=== PATIENT | female | born 1980 | race Caucasian/White ===

== ENCOUNTER 2016-12-17 14:17 | Inpatient (IN) | payer MEDICAID ==
[~2016-12-17] VITALS: Ht 157.5 cm; Wt 65.3 kg
[~2016-12-17 14:17] MED LIST changes: -IBUP-232 PO; -OXYC1TAB63 PO
--- NOTE | 2017-02-27 17:17 | MH ---
cc: ABDIAZIZ SETH DATE OF ADMISSION: 03/01/2017 HISTORY AND PHYSICAL The patient is a 36-year-old female 6, para 3-0-2-3, history of three previous sections for elective repeat section. The patient is 39 weeks gestation. 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 The patient has been recovered for more than a year. The patient's recent hepatitis C titer RNA measured over three million International Units, the core antibody was greater than 11. The patient was concerned in regards to ability to breast feed . The patient has elected for repeat section at term. Her due date is 03/07/2017. The patient's course has been unremarkable. Group B strep status is negative. Her blood type is O negative. The patient received RhoGAM appropriately. The patient also has a history of herpes simplex type 2 and has been on Valtrex since 36 weeks. ALLERGIES PENICILLIN AND LATEX ALLERGY. PAST MEDICAL HISTORY 1. History of bipolar disorder. 2. Hepatitis C. 3. Herpes. 4. Three previous sections uncomplicated and a spontaneous termination. No other surgical history documented. FAMILY HISTORY Noncontributory. SOCIAL HISTORY The patient is about a pack a day smoker. CURRENT MEDICATIONS 1. Valtrex 500 mg daily. 2. vitamins. PHYSICAL EXAMINATION GENERAL: The patient is a well-appearing, well-nourished female in no acute distress. VITAL SIGNS: Vital signs are stable. Blood pressure is 110/60. She weighs 142 pounds. HEAD, EYES, EARS, NOSE AND THROAT: Shows no adenopathy or thyromegaly. LUNGS: Lungs are clear in all rouse. CARDIAC: Regular, rate and rhythm. ABDOMEN: Abdomen is gravid, full-term. Fundus measures 40 weeks. PELVIC: Pelvic was deferred. EXTREMITIES: Extremities are symmetrical. Full range of motion. There is no cyanosis, clubbing or edema. NEUROLOGIC: Exam is grossly intact, nonfocal. ASSESSMENT Patient at 39 weeks intrauterine gestation, three previous sections, is scheduled for a repeat section with tubal ligation. History of recovering drug abuse, hepatitis C, herpes simplex type 2, GBS negative, smoker. MD MARGARITA Bowen/JASPER /4:35 PM /4:55 PM
[2017-03-01] VITALS (9 sets, daily range): BP systolic 115–131; BP diastolic 69–87; PULSE 53–84; RESP 18–20; TEMP 97.5–98.6; O2SAT 96–99
[2017-03-01] MEDS ORDERED: LACTATED RINGER'S 1000 ML IV ONE (06:30)
[2017-03-01] MEDS ORDERED: CITRIC ACID-SODIUM CITRATE LIQ 30 ML UDC PO SCH (06:30)
[2017-03-01] MEDS ORDERED: LACTATED RINGER'S 1000 ML IV SCH (06:30)
[2017-03-01] MEDS ORDERED: ceFAZolin 1,000 MG/NS 100 ML IV SCH ×2 (06:30)
[2017-03-01 06:43] LABS: AUTOMATED NEUTROPHIL # 8.3 TH/MM3 (1.8-7.7); BASOPHIL % 0.4 % (0.0-2.0); EOSINOPHIL # 0.1 TH/MM3 (0-0.4); EOSINOPHIL % 0.9 % (0.0-4.0); HEMATOCRIT 34.9 % (35.0-46.0); HEMO FLAGS DIFF FINAL; LYMPH % 17.1 % (9.0-44.0); LYMPHOCYTE # 1.9 TH/MM3 (1.0-4.8); MEAN CELL VOLUME 91.8 FL (80.0-100.0); MEAN CORPUSCULAR HGB CONC 35.9 % (32.0-36.0); MONO % 7.3 % (0.0-8.0); NEUT % 74.3 % (16.0-70.0); PLATELET COUNT 164 TH/MM3 (150-450); RED CELL DISTRIBUTION WIDTH 12.7 % (11.6-17.2); WHITE BLOOD COUNT 11.2 TH/MM3 (4.0-11.0)
[2017-03-01 06:52] LABS: BLOOD, URINE NEG (NEG); GLUCOSE,URINE NEG (NEG); KETONE, URINE NEG (NEG); NITRITE,URINE NEG (NEG); SQUAMOUS EPITHELIAL CELL URINE <1 /hpf (0-5); URINE COLOR LIGHT-YELLOW (YELLW/STRAW)
[2017-03-01 06:58] LABS: COMMENT (UR) CULT NOT INDICATED; CULTURE IF INDICATED CULT NOT INDICATED
[2017-03-01 07:08] LABS: AMPHETAMINE, URINE NEG (NEG); BARBITURATES, URINE NEG (NEG); COCAINE, URINE NEG (NEG)
[2017-03-01] MEDS ORDERED: OXYTOCIN 10 UNIT/ML AMP ONE (07:15)
[2017-03-01] MEDS ORDERED: ONDANSETRON HCL 4 MG/2 ML VIAL ONE (07:15)
[2017-03-01] MEDS ORDERED: MORPHINE SULFATE PF 5 MG/10 ML VIAL ONE (07:15)
[2017-03-01] MEDS ORDERED: ONDANSETRON HCL 4 MG/2 ML VIAL IV PUSH PRN (07:30)
[2017-03-01] MEDS ORDERED: SODIUM CHLORIDE 0.9% FLUSH 10 ML FLUSH IV FLUSH PRN (07:30)
[2017-03-01] MEDS ORDERED: ACETAMINOPHEN 1000 MG/100 ML VIAL IV ONE ×2 (07:30→09:02)
[2017-03-01] MEDS ORDERED: KETOROLAC TROMETHAMINE 60 MG/2 ML (IM) VIAL IM PRN (07:30)
[2017-03-01] MEDS ORDERED: OXYTOCIN 30 UNITS-500ML PREMIX 500 ML IV ONE (07:30)
[2017-03-01] MEDS ORDERED: CLINDAMYCIN INJ 600 MG in SODIUM CHLORIDE 0.9% INJ 100 ML IV SCH (08:00)
--- NOTE | 2017-03-01 08:23 | PD.OB.DELI ---
Procedure Note Section Procedure Performed by Anup Dietz Procedure: Repeat Low Transverse Sec (With BTL) Indication for delivery: Desired elective repeat Informed consent obtained: For anesthesia Confirmed correct: Patient, Procedure, Site, Time-out taken Anesthesia: Spinal Medication prior to procedure: As documented in eMAR Monitoring during procedure: Blood pressure monitoring, monitoring manager, doppler, Pulse oximetry Urinary catheter: Inserted using sterile technique, To dependent drainage Sterile preparation: Duraprep, In usual fashion Position: Supine with wedge to right side, Supine with safety belt applied Operative Features Skin Incision: Pfannenstiel Uterine Incision: Low transverse w/knife / scissors Membranes Ruptured: Artificially Presentation: Occiput anterior Delivery of infant: Uneventful Infant: Male One Minute : 9 Five Minute : 9 Weight: 7#1oz Status of : Viable, Cord blood Placenta delivered: Intact Medications: Antibiotics, Oxytocin Estimated blood loss: 6500cc Procedure tolerated: Well Maternal Condition: Stable Condition: Stable Anup Dietz MD Mar 01, 2017 08:23
[2017-03-01] MEDS ORDERED: SODIUM CHLORIDE 0.9% FLUSH 10 ML FLUSH IV FLUSH SCH (09:00)
[2017-03-01] MEDS ORDERED: OXYTOCIN 30 UNITS-500ML PREMIX 500 ML ONE (09:03)
[2017-03-01] MEDS ORDERED: ePHEDrine/NS 25 MG/5 ML SYR IV ONE (09:22)
[2017-03-01] MEDS ORDERED: KETOROLAC TROMETHAMINE 30 MG/ML (IVP) VIAL ONE (09:26)
[2017-03-01] MEDS ORDERED: EPIDURAL-DIPHENHYDRAMINE HCL 50 MG/ML VIAL IV PUSH PRN (10:30)
[2017-03-01] MEDS ORDERED: EPIDURAL-NO SYSTEMIC NARCOTICS PRN (10:30)
[2017-03-01] MEDS ORDERED: EPIDURAL-DIPHENHYDRAMINE HCL 50 MG CAP PO PRN (10:30)
[2017-03-01] MEDS ORDERED: EPIDURAL-DO NOT ADMINISTER ANTICOAGULANTS PRN (10:30)
[2017-03-01] MEDS ORDERED: EPIDURAL-NALOXONE HCL 0.4 MG/ML AMP IV PRN (10:30)
[2017-03-01] MEDS ORDERED: LACTATED RINGER'S 1000 ML INJ 1,000 ML IV SCH (12:21)
[2017-03-01] MEDS: CLINDAMYCIN INJ 600 MG in SODIUM CHLORIDE 0.9% INJ 100 ML IV SCH ×2 (13:11→18:19)
[2017-03-01] MEDS: oxyCODONE/ACETAMINOPHEN 5 MG/325 MG TAB PO PRN ×2 (15:49→20:08)
[2017-03-01] MEDS: DOCUSATE SODIUM 50 MG/SENNA 8.6 MG TAB PO PRN (15:49)
[2017-03-01] MEDS: IBUPROFEN 600 MG TAB PO PRN ×2 (15:49→22:15)
[2017-03-01] MEDS ORDERED: OXYTOCIN 30 UNITS-500ML PREMIX 500 ML IV PRN (17:30)
[2017-03-01] MEDS: SIMETHICONE 80 MG CHEWABLE TAB PO PRN (22:18)
[2017-03-02] MEDS: oxyCODONE/ACETAMINOPHEN 5 MG/325 MG TAB PO PRN ×5 (02:11→20:18)
[2017-03-02 04:00] VITALS: BP 116/68; PULSE 108; PULSE 77; RESP 18; TEMP 97.7
[2017-03-02] MEDS: DOCUSATE SODIUM 50 MG/SENNA 8.6 MG TAB PO PRN ×2 (06:06→20:18)
[2017-03-02] MEDS: SIMETHICONE 80 MG CHEWABLE TAB PO PRN ×2 (06:06→15:50)
[2017-03-02] MEDS: IBUPROFEN 600 MG TAB PO PRN ×3 (06:06→20:18)
[2017-03-02 06:35] LABS: BASOPHIL % 0.2 % (0.0-2.0); EOSINOPHIL # 0.1 TH/MM3 (0-0.4); EOSINOPHIL % 0.8 % (0.0-4.0); HEMATOCRIT 29.9 % (35.0-46.0); HEMO FLAGS DIFF FINAL; LYMPH % 17.8 % (9.0-44.0); LYMPHOCYTE # 2.2 TH/MM3 (1.0-4.8); MEAN CELL VOLUME 93.3 FL (80.0-100.0); MEAN CORPUSCULAR HEMOGLOBIN 31.4 PG (27.0-34.0); MEAN CORPUSCULAR HGB CONC 33.6 % (32.0-36.0); MONO % 8.4 % (0.0-8.0); NEUT % 72.8 % (16.0-70.0); PLATELET COUNT 135 TH/MM3 (150-450); RED CELL DISTRIBUTION WIDTH 12.4 % (11.6-17.2); WHITE BLOOD COUNT 12.4 TH/MM3 (4.0-11.0)
[2017-03-02 09:25] VITALS: BP 129/69; PULSE 70; RESP 16; TEMP 98.3
--- NOTE | 2017-03-02 10:56 | HHI.OB ---
Subjective Post Operative Day: 1 Remarks Doing well, Baby is well, not because of the hepatitis C bleeding is good, pain is well controlled. Objective Vitals/I&O Vital Signs Date Time Temp Pulse Resp B/P Pulse Ox O2 Delivery O2 Flow Rate FiO2 03/02/17 09:25 98.3 03/02/17 09:25 70 16 129/69 03/02/17 04:00 116/68 03/02/17 04:00 97.7 108 18 03/02/17 04:00 77 03/01/17 23:58 98.3 20 03/01/17 23:58 61 117/69 03/01/17 20:00 75 115/69 03/01/17 20:00 98.6 18 Result Diagram: 03/02/17 0554 Objective Remarks GENERAL: Well-nourished, well-developed patient. CARDIOVASCULAR: Regular rate and rhythm without murmurs, gallops, or rubs. RESPIRATORY: Breath sounds equal bilaterally. No accessory muscle use. ABDOMEN/GI: Abdomen soft, non-tender, bowel sounds present. Incision: Clean, dry and intact. Fundus: Firm, non-tender at umbilicus. GENITOURINARY: Light to moderate bleeding. EXTREMITIES: No cyanosis or edema, non-tender, without signs of DVT. Medications and IVs Current Medications Medications (Trade) Dose Ordered Sig/Gomez Route Start Time Stop Time Status Last Admin (Lr 1000 ml Inj) 1,000 ml @ 150 mls/hr Q6H40M IV 03/01/17 06:30 03/01/17 06:30 (NS Flush) 2 ml BID IV FLUSH 03/01/17 09:00 (NS Flush) 2 ml UNSCH PRN IV FLUSH 03/01/17 07:30 (Mylicon Chew) 80 mg QID PRN PO 03/01/17 07:30 03/02/17 06:06 (Motrin) 600 mg Q6H PRN PO 03/01/17 07:30 03/02/17 06:06 (Percocet 5-325 Mg) 1 tab Q4H PRN PO 03/01/17 07:30 03/02/17 06:49 (Percocet 5-325 Mg) 2 tab Q4H PRN PO 03/01/17 07:30 (Aleida-Colace) 2 tab Q12H PRN PO 03/01/17 07:30 03/02/17 06:06 (M-M-R Ii Inj) 0.5 ml ONCE ONCE SQ 03/02/17 16:00 03/02/17 16:01 (Boostrix Inj) 0.5 ml ONCE ONCE IM 03/02/17 16:00 03/02/17 16:01 (Zofran Inj) 4 mg Q6H PRN IV PUSH 03/01/17 07:30 Assessment/Plan Assessment and Plan POD#1 Doing well Anemia will start fe after percocet Hep C will speak with peds regarding Hep c and . Kayli Dash MD Mar 02, 2017 10:56
[2017-03-02] MEDS ORDERED: IBUP-232 PO (10:58)
[2017-03-02] MEDS ORDERED: OXYC1TAB63 PO (10:58)
--- NOTE | 2017-03-02 10:58 | HHI.DCPOC ---
Discharge Care Plan Diagnosis: (1) Previous section complicating , antepartum condition or complication Report Symptoms to Your Doctor -Temperate above 100.5 degrees -Redness, of incision or excessive or foul smelling drainage -Unusual pain or calf pain -Increased vaginal bleeding -Painful or difficulty urinating -Feelings of extreme sadness or anxiety after 2 weeks Goals to Promote Your Health * To prevent worsening of your condition and complications * To maintain your health at the optimal level Directions to Meet Your Goals Take your medications as prescribed Follow your dietary instruction Follow activity as directed Ensure plenty of rest for recovery Drink fluids for hydration Keep your appointments as scheduled Take your immunizations and boosters as scheduled If your symptoms worsen call your PCP, if no PCP go to Urgent Care Center or Emergency Room Smoking is Dangerous to Your Health. Avoid second hand smoke Call the 24-hour crisis hotline for domestic abuse at Kayli Dash MD Mar 02, 2017 10:58
[2017-03-02] MEDS ORDERED: DIPHTH/TETANUS/ACEL PERTUSSIS (BOOSTER) 0.5 ML VIAL/PFS IM ONE (16:00)
[2017-03-02] MEDS ORDERED: MEASLES, MUMPS, RUBELLA VACCINE 0.5 ML VIAL SQ ONE (16:00)
[2017-03-03] MEDS: oxyCODONE/ACETAMINOPHEN 5 MG/325 MG TAB PO PRN ×4 (00:52→14:27)
[2017-03-03] MEDS: IBUPROFEN 600 MG TAB PO PRN ×3 (03:38→17:51)
[2017-03-03 07:57] VITALS: BP 118/74; PULSE 60; RESP 18; TEMP 98
[2017-03-03] MEDS: SIMETHICONE 80 MG CHEWABLE TAB PO PRN (09:34)
[2017-03-03] MEDS: DOCUSATE SODIUM 50 MG/SENNA 8.6 MG TAB PO PRN (09:35)
--- NOTE | 2017-03-03 12:02 | HHI.OB ---
Subjective Post Operative Day: 2 Remarks Doing well, Baby is doing well and Pain is well controlled Objective Vitals/I&O Vital Signs Date Time Temp Pulse Resp B/P Pulse Ox O2 Delivery O2 Flow Rate FiO2 03/03/17 10:36 18 03/03/17 10:36 18 03/03/17 07:57 98.0 60 18 118/74 Result Diagram: 03/02/17 0554 Objective Remarks GENERAL: Well-nourished, well-developed patient. CARDIOVASCULAR: Regular rate and rhythm without murmurs, gallops, or rubs. RESPIRATORY: Breath sounds equal bilaterally. No accessory muscle use. ABDOMEN/GI: Abdomen soft, non-tender, bowel sounds present. Incision: Clean, dry and intact. Fundus: Firm, non-tender at umbilicus. GENITOURINARY: Light to moderate bleeding. EXTREMITIES: No cyanosis or edema, non-tender, without signs of DVT. Medications and IVs Current Medications Medications (Trade) Dose Ordered Sig/Gomez Route Start Time Stop Time Status Last Admin (Lr 1000 ml Inj) 1,000 ml @ 150 mls/hr Q6H40M IV 03/01/17 06:30 03/01/17 06:30 (NS Flush) 2 ml BID IV FLUSH 03/01/17 09:00 (NS Flush) 2 ml UNSCH PRN IV FLUSH 03/01/17 07:30 (Mylicon Chew) 80 mg QID PRN PO 03/01/17 07:30 03/03/17 09:34 (Motrin) 600 mg Q6H PRN PO 03/01/17 07:30 03/03/17 09:35 (Percocet 5-325 Mg) 1 tab Q4H PRN PO 03/01/17 07:30 03/02/17 06:49 (Percocet 5-325 Mg) 2 tab Q4H PRN PO 03/01/17 07:30 03/03/17 09:34 (Aleida-Colace) 2 tab Q12H PRN PO 03/01/17 07:30 03/03/17 09:35 (Zofran Inj) 4 mg Q6H PRN IV PUSH 03/01/17 07:30 Assessment/Plan Assessment and Plan POD#2 Doing well Anemia will start fe after percocet Hep C Will d/c home tonite if stable Vagovic,R. Anibal MD Mar 03, 2017 12:02
[2017-03-03 15:45] VITALS: RESP 18
--- NOTE | 2017-03-04 08:04 | MP ---
cc: ABDIAZIZ SETH M.D. DATE OF SURGERY: 03/01/2017 DATE OF : 1980 PREOPERATIVE DIAGNOSIS 1. Term intrauterine . 2. Previous section x3, for elective repeat section and sterilization. 3. History of hepatitis C. 4. History of recovered substance abuse. 5. Smoker. 6. Advanced maternal age. PROCEDURE 1. Repeat low transverse section. 2. Delivery of viable male infant. 3. Bilateral tubal ligation by modified [place] technique. POSTOPERATIVE DIAGNOSIS 1. Term intrauterine . 2. Previous section x3, for elective repeat section and sterilization. 3. History of hepatitis C. 4. History of recovered substance abuse. 5. Smoker. 6. Advanced maternal age. ANESTHESIA Spinal. ESTIMATED BLOOD LOSS 650 cc. DRAINS Flynn to gravity. OPERATIVE FINDINGS Male infant weighing 7 pounds 1 ounce with Apgars of 9 at one minute and 9 at five. Clear fluid. Three-vessel cord. DETAILS OF PROCEDURE The patient was taken to the operating room, consented for repeat section and tubal ligation at term. Underwent spinal anesthetic without complication. She received clindamycin as an antibiotic secondary to a penicillin allergy. She was prepped and draped. Flynn was inserted by sterile technique. She had sequentials placed on her lower extremities. She had excellent pain control. A timeout was conducted and agreed by all present in the room. Once the patient was adequately prepped and draped a Pfannenstiel incision was used going through the previous scar through the subcutaneous layer to the fascia. A moderate amount of scar tissue was identified but nothing significant. The peritoneum was identified easily after the rectus muscle in the midline. A bladder blade was placed over the pubic symphysis. A transverse incision was made in the lower uterine segment with clear fluid. The incision was extended and the was delivered by simple manipulation and fundal pressure. No nuchal cord. A three-vessel cord identified. Infant had Apgars of 9 at one minute and 9 at five. The infant was taken to the isolette after the cord was doubly clamped and cut. Cord blood was obtained for sampling. The placenta was removed intact with trailing membranes. Exploration of the uterus was clear. The uterus was closed with a double layer, first as a running locking suture of 0 Monocryl followed by a second imbricating suture of 0 Monocryl. The fallopian tubes were identified. The mesentery was opened using the Bovie and then a 2-0 plain suture was placed proximally and distally on each fallopian tube to excise the mid isthmic portion of the tube, approximately 4 cm in each tube. Hemostasis was confirmed. The uterus was then returned to its normal anatomic position in the pelvis and examined. There was no active bleeding. The pelvis was irrigated with normal saline. No active bleeding or hematoma was identified after clearing the fluid. Full count was made and correct. The peritoneum was then closed with running suture of 2-0 Monocryl. The muscle bellies were re-approximated with interrupted mattress suture of 2-0 Monocryl and the fascia was closed with 0 Vicryl in a simple running fashion. The subcutaneous layer was irrigated and any small bleeders were cauterized. The space was re-approximated with a running suture of 2-0 Monocryl. [place] were used to close the skin. The final count was correct. The patient was stable. The was doing well in the recovery room with the nursery staff. MD MARGARITA Bowen/MAGNUS /8:29 AM /7:51 AM
[2017-03-06 10:49] LABS: BATH SALTS (MDPV) UR NEG (NEG); ECSTASY (MDMA) UR NEG (NEG); GABAPENTIN UR NEG (NEG); HEROIN (6-ACETYLMORPHINE) UR NEG (NEG); HYDROMORPHONE U NEG (NEG); K2 SPICE UR NEG (NEG); OBMETHADONE UR NEG (NEG); OXYCODONE (PERCODAN) NEG (NEG); PHENCYCLIDINE URINE NEG (NEG)
[2017-03-06 17:54] LABS: HEP B DNA R1 LESS THAN 20 IU/mL (()); HEP B DNA R2 LESS THAN 1.30 (())
== END 2017-03-03 18:19 | disposition home or self-care (01) | DRG 765 ==
LOC: H2EB 03-01 05:28 → H1EA 03-01 09:42
PROVIDERS: ADMIT Obstetrics & Gynecology; ATTEND Obstetrics & Gynecology
PROC: 10D00Z1 Extraction of Products of Conception, Low, Open Approach (ICD-10-PCS; principal; 2017-03-01)
PROC: 0UB70ZZ Excision of Bilateral Fallopian Tubes, Open Approach (ICD-10-PCS; 2017-03-01)
DX: O34.219 Maternal care for unspecified type scar from previous cesarean delivery (principal); O98.42 Viral hepatitis complicating childbirth; O98.513 Other viral diseases complicating pregnancy, third trimester; B19.20 Unspecified viral hepatitis C without hepatic coma; B00.9 Herpesviral infection, unspecified; O99.333 Smoking (tobacco) complicating pregnancy, third trimester; F17.210 Nicotine dependence, cigarettes, uncomplicated; O99.02 Anemia complicating childbirth; D64.9 Anemia, unspecified; Z3A.39 39 weeks gestation of pregnancy; Z37.0 Single live birth; Z88.0 Allergy status to penicillin; Z91.040 Latex allergy status
CPT/HCPCS: 59025; 80307; 80348; 81001; 85025; 86850; 86900; 86901; 87517; 88302; G0480; G0481; J0131; J0690; J1885; J2274; J2405; J2590; J3010; J7120

== ENCOUNTER → 2016-12-17 | Outpatient (CLI) | payer MEDICAID ==
[~2016-12-17] MED LIST: IBUP-232 PO; OXYC1TAB63 PO; PREN1TAB18
== END ==
LOC: CLAB 10:40
PROVIDERS: ATTEND Obstetrics & Gynecology
DX: O36.0190 Maternal care for anti-D [Rh] antibodies, unspecified trimester, not applicable or unspecified (principal)
CPT/HCPCS: 36415; 86850; 86900; 86901; 90384; 96372; J2790

== ENCOUNTER → 2017-01-31 | Emergency (ER) | payer MEDICAID ==
[~2017-01-31] MED LIST changes: +IBUP-232 PO; +LACTATED RINGER'S 1000 ML INJ 1,000 ML IV ONE; +LACTATED RINGER'S 1000 ML INJ 1,000 ML IV SCH; +OXYC1TAB63 PO
--- NOTE | 2017-01-31 12:03 | PD ---
HPI Chief Complaint Contractions Date Seen: Jan 31, 2017 Travel History International Travel<30 Days: No Contact w/Intl Traveler<30Days: No Known Affected Area: No History of Present Illness HPI at 35w 0d presents with c/o contractions for several days. Denies LOF/ VB. Reports good FM. History of previous C/S x 3. Denies urinary or bowel complaints. Denies problems this . Para: 3 : 6 History Past Medical History Narrative Medical Hepatitis C Obstetric History Obstetric History C/S x 3 Past Surgical History Narrative Surgical C/S x 3 Family History Family History: Negative Social History Alcohol Use: No Tobacco Use: No Substance Abuse: No (History of use- last use 2-3 years ago) Allergies-Medications (Allergen,Severity, Reaction): Coded Allergies: Latex (Verified Allergy, Intermediate, Rash, 11/06/16) Penicillin (Unverified Adverse Reaction, Intermediate, GI UPSET, 11/06/16) Uncoded Allergies: NARCOTICS (Adverse Reaction, Unknown, 04/16/16) "I'M IN RECOVERY" Home Meds Reported Medications Vitamins W/ Fe Aspart (Prenate Star 20-1 mg)1 Tab Tab 11/06/16 Physical Exam VSS BP 122/76 Narrative GENERAL: Well-nourished, well-developed patient. SKIN: Warm and dry. HEAD: Normocephalic and atraumatic. EYES: No scleral icterus. No injection or drainage. ENT: No nasal drainage noted. Mucous membranes pink. Airway patent. NECK: Supple, trachea midline. No JVD. CARDIOVASCULAR: Regular rate and rhythm without murmurs, gallops, or rubs. RESPIRATORY: Breath sounds equal bilaterally. No accessory muscle use. BREASTS: Bilateral exam showed no masses , no retractions, no nipple discharge. ABDOMEN/GI: Abdomen soft, non-tender, bowel sounds present, no rebound, no guarding Gravid to [-] weeks size Fundal Height: [-] GENITOURINARY: External Genitalia: intact and normal in appearance BUS glands: [-] Cervix: [no cervical change noted] Dilatation: [0] Effacement: [50] Station: [3] Presentation: [-] Membranes: [intact or ruptured] Uterine Contractions: [irregular contractions] FHT's: Category: [1] Baseline: [140s] Reactive: [-] Variability: [moderate] Decels: [none] EXTREMITIES: No cyanosis or edema. BACK: Nontender without obvious deformity. No CVA tenderness. NEUROLOGICAL: Awake and alert. Motor and sensory grossly within normal limits. Five out of 5 muscle strength in all muscle groups. Normal speech. Data Data Vital Signs Reviewed: Yes MDM Interpretation(s) IUP at 35w 0d with history of previous C/S x 3, false labor. Plan Will begin IVF and monitor. Will reexamine. D/C home if no cervical change. Keep next schedule appt. Labor precautions. Diagnosis Diagnosis: Primary Impression: 35 weeks gestation of Additional Impressions: Irregular uterine contractions False labor before 37 completed weeks of gestation during in third trimester, antepartum Disposition: DISCHARGE HOME Departure Forms: Work Release Almita Carrero MD Jan 31, 2017 12:02
[2017-01-31 12:50] LABS: BLOOD, URINE NEG (NEG); COMMENT (UR) CULT NOT INDICATED; CULTURE IF INDICATED CULT NOT INDICATED; GLUCOSE,URINE NEG (NEG); KETONE, URINE NEG (NEG); MUCUS URINE FEW /lpf (OCC); NITRITE,URINE NEG (NEG); SQUAMOUS EPITHELIAL CELL URINE <1 /hpf (0-5)
[2017-01-31 12:58] LABS: URINE COLOR STRAW (YELLW/STRAW)
== END | disposition home or self-care (01) ==
LOC: HOBED 10:41
DX: O47.03 False labor before 37 completed weeks of gestation, third trimester (principal); Z3A.35 35 weeks gestation of pregnancy
CPT/HCPCS: 59025; 81001

== ENCOUNTER 2017-02-19 17:05 | Emergency (ER) | payer MEDICAID ==
[~2017-02-19 17:05] MED LIST changes: -IBUP-232 PO; -LACTATED RINGER'S 1000 ML INJ 1,000 ML IV ONE; -LACTATED RINGER'S 1000 ML INJ 1,000 ML IV SCH; -OXYC1TAB63 PO
--- NOTE | 2017-02-19 18:37 | PD ---
HPI Chief Complaint Back pain with intermittent contractions Date Seen: Feb 19, 2017 Time Seen: 18:32 Travel History International Travel<30 Days: No Contact w/Intl Traveler<30Days: No Known Affected Area: No History of Present Illness HPI 36-year-old who is at 37 weeks and 5 days comes in today complaining of back pain that began last night. She's been having intermittent contractions which is worse with activity for the past week. Patient is experiencing normal movement and she has a repeat section scheduled at 39 weeks Para: 3 : 6 : 2 History Past Medical History Narrative Medical Hepatitis C with high viral load Obstetric History Obstetric History section 3 Past Surgical History Narrative Surgical section 3 laparoscopic ovarian cyst Family History Family History: Negative Social History Alcohol Use: No Tobacco Use: No Substance Abuse: No Allergies-Medications (Allergen,Severity, Reaction): Coded Allergies: Latex (Verified Allergy, Intermediate, Rash, 11/06/16) Penicillin (Unverified Adverse Reaction, Intermediate, GI UPSET, 11/06/16) Uncoded Allergies: NARCOTICS (Adverse Reaction, Unknown, 04/16/16) "I'M IN RECOVERY" Home Meds Reported Medications Vitamins W/ Fe Aspart (Prenate Star 20-1 mg)1 Tab Tab 11/06/16 Review of Systems Except as stated in HPI: all other systems reviewed are Neg Physical Exam Narrative GENERAL: Well-nourished, well-developed patient. SKIN: Warm and dry. HEAD: Normocephalic and atraumatic. EYES: No scleral icterus. No injection or drainage. ENT: No nasal drainage noted. Mucous membranes pink. Airway patent. NECK: Supple, trachea midline. No JVD. CARDIOVASCULAR: Regular rate and rhythm without murmurs, gallops, or rubs. RESPIRATORY: Breath sounds equal bilaterally. No accessory muscle use. BREASTS: Bilateral exam showed no masses , no retractions, no nipple discharge. ABDOMEN/GI: Abdomen soft, non-tender, bowel sounds present, no rebound, no guarding Gravid to [-37] weeks size Fundal Height: [-] GENITOURINARY: External Genitalia: intact and normal in appearance BUS glands: [Normal-] Cervix: [Posterior-] Dilatation: [Fingertip-] Effacement: 50 Station: -3 Presentation: Vertex Membranes: Intact Uterine Contractions: Irritability FHT's: Category: [1-] Baseline: 140 Reactive: Moderate Variability: Moderate Decels: Absent EXTREMITIES: No cyanosis or edema. BACK: Nontender without obvious deformity. No CVA tenderness. NEUROLOGICAL: Awake and alert. Motor and sensory grossly within normal limits. Five out of 5 muscle strength in all muscle groups. Normal speech. Data Data Vital Signs Reviewed: Yes MDM Plan 36-year-old at 37 weeks 5 days with back pain not in labor Follow-up with OB provider as scheduled or earlier as necessary Labor precautions given Diagnosis Diagnosis: Primary Impression: Previous section complicating , antepartum condition or complication Additional Impressions: False labor after 37 weeks of gestation without delivery 37 weeks gestation of Hepatitis C Back pain affecting in third trimester Disposition: 01 DISCHARGE HOME Patt Herndon MD Feb 19, 2017 18:37
== END 2017-02-19 18:44 | disposition home or self-care (01) ==
LOC: HOBED 17:05
DX: O47.1 False labor at or after 37 completed weeks of gestation (principal); O34.219 Maternal care for unspecified type scar from previous cesarean delivery; M54.9 Dorsalgia, unspecified; B19.20 Unspecified viral hepatitis C without hepatic coma; Z3A.37 37 weeks gestation of pregnancy
CPT/HCPCS: 59025

== ENCOUNTER 2017-06-02 17:00 | Emergency (ER) | payer MEDICAID ==
[~2017-06-02] VITALS: Ht 157.5 cm; Wt 53.0 kg
[~2017-06-02 17:00] MED LIST changes: +IBUP-232 PO; +OXYC1TAB63 PO
[2017-06-02 17:10] VITALS: BP 149/65; PULSE 84; RESP 16; TEMP 98.3; O2SAT 100
[2017-06-02] MEDS ORDERED: TORADOL PO (17:47)
[2017-06-02 17:54] LABS: BLOOD, URINE TRACE (NEG); GLUCOSE,URINE NEG (NEG); KETONE, URINE NEG (NEG); NITRITE,URINE NEG (NEG); PH, URINE 6.5 (5.0-8.5)
[2017-06-02 17:57] LABS: METHOD OF COLLECTION CLEAN CATCH; URINE COLOR STRAW (YELLW/STRAW)
[2017-06-02 17:59] LABS: BACTERIA, URINE MOD /hpf; COMMENT (UR) CULTURE INDICATED; COMMENT2 (UR) MUCOUS PRESENT; CULTURE IF INDICATED CULTURE INDICATED; RBC, URINE 0-3 /hpf (0-3)
[2017-06-02] MEDS ORDERED: SODIUM CHLOR 0.9% 1000 ML INJ 1,000 ML IV SCH (18:26)
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
[2017-06-02] MEDS ORDERED: ONDANSETRON ODT 4 MG TAB PO ONE (18:30)
[2017-06-02] MEDS ORDERED: KETOROLAC TROMETHAMINE 30 MG/ML (IVP) VIAL IVP ONE (18:30)
[2017-06-02] MEDS ORDERED: SODIUM CHLORIDE 0.9% FLUSH 10 ML FLUSH IV FLUSH PRN (18:30)
[2017-06-02 18:43] VITALS: O2SAT 98
[2017-06-02 19:14] LABS: AUTOMATED NEUTROPHIL # 5.7 TH/MM3 (1.8-7.7); BASOPHIL # 0.1 TH/MM3 (0-0.2); BASOPHIL % 1.2 % (0.0-2.0); EOSINOPHIL # 0.2 TH/MM3 (0-0.4); EOSINOPHIL % 2.5 % (0.0-4.0); HEMATOCRIT 43.1 % (35.0-46.0); HEMO FLAGS DIFF FINAL; LYMPH % 26.6 % (9.0-44.0); LYMPHOCYTE # 2.4 TH/MM3 (1.0-4.8); MEAN CELL VOLUME 91.2 FL (80.0-100.0); MEAN CORPUSCULAR HEMOGLOBIN 30.1 PG (27.0-34.0); MONO % 7.7 % (0.0-8.0); PLATELET COUNT 286 TH/MM3 (150-450); RED BLOOD COUNT 4.72 MIL/MM3 (4.00-5.30); RED CELL DISTRIBUTION WIDTH 12.3 % (11.6-17.2); WHITE BLOOD COUNT 9.1 TH/MM3 (4.0-11.0)
[2017-06-02 19:21] LABS: POTASSIUM 3.7 MEQ/L (3.5-5.1)
[2017-06-02 19:22] VITALS: BP 119/62; PULSE 71; RESP 20; O2SAT 100
[2017-06-02 19:24] LABS: BICARBONATE 27.2 MEQ/L (21.0-32.0)
[2017-06-02] MEDS ORDERED: CEPH-460 PO (19:35)
[2017-06-02] MEDS ORDERED: ULTR50TA5 PO ×2 (19:42→20:06)
[2017-06-02] MEDS ORDERED: cefTRIAXone INJ 1,000 MG in SODIUM CHLORIDE 0.9% INJ 100 ML IV ONE (19:45)
[2017-06-02] MEDS ORDERED: traMADol HCL 50 MG TAB PO ONE (19:45)
[2017-06-02 20:06] VITALS: BP 104/53; PULSE 87; RESP 16; O2SAT 100
[2017-06-02 20:27] VITALS: BP 112/57; PULSE 63; RESP 16; O2SAT 99
[2017-06-02 20:38] VITALS: RESP 16
[2017-06-08] MEDS ORDERED: KETO10 PO (23:20)
== END 2017-06-02 20:48 | disposition home or self-care (01) ==
LOC: PHED 17:00
DX: N12 Tubulo-interstitial nephritis, not specified as acute or chronic (principal); R11.0 Nausea; B96.89 Other specified bacterial agents as the cause of diseases classified elsewhere; F17.200 Nicotine dependence, unspecified, uncomplicated; Z86.59 Personal history of other mental and behavioral disorders; Z87.19 Personal history of other diseases of the digestive system; Z87.39 Personal history of other diseases of the musculoskeletal system and connective tissue; Z87.42 Personal history of other diseases of the female genital tract; Z86.69 Personal history of other diseases of the nervous system and sense organs
CPT/HCPCS: 80048; 81001; 84703; 85025; 87086; 96361; 96365; 96375; 99284; J0696; J1885; J7030; 87077; 87186